=== PATIENT | female | born 1990 | race Caucasian/White ===

== ENCOUNTER 2019-12-21 20:12 | Inpatient (IN) ==
[2019-12-21] MEDS ORDERED: OXYTOCIN 30 UNITS/500 ML BAG IV PRN ×2 (20:57→21:07)
--- NOTE | 2019-12-21 21:03 | History & Physical Report ---
Date of Service December 21, 2019 Assessment & Plan (1) 38 weeks gestation of : category one fetus (2) Gestational hypertension: Initial pressures very high and likely contributed to by her anxiety. Once plan discussed pressure was lower. Her labs drawn earlier today were all wnl. she meets the criteria for ghtn and given she is greater than 37 weeks, recommendation is for delivery. Explained this situation to the patient and her who express understanding and agree to the plan for induction. No indication for BP meds or Mag at this point. However, if pressures remain elevated in severe range, will need to treat and start Mag. Will continue to monitor closely. History of Present Illness Chief Complaint: elevated blood pressures Primary Care Provider: Malena Woodruff DO Patient is a 29yowf with iup at 38 2/7 weeks who presented to the office today for her pnv. Had elevated blood pressures of 148/94 and 144/90. At her appt last week had a 144/90. Patient returns to labor and delivery for blood pressure reevaluation. The patient is VERY nervous about what will be happening. She denies bates/vision changes/n/v/ruq pain or increase in swelling. Notes she has been swollen for several weeks but not increased recently. The has been complicated by GBS positive urine. labs--A+/ab-/ri/rprnr/hepb-/hiv-/gbs positive urine/ neg cf/sma/ neg gc/ct/ nl 16 week gtt/ failed 28 week gtt and passed 2 hr. Allergies Allergy/AdvReac Type Severity Reaction Status Date / Time No Known Allergies Allergy Verified 12/21/19 15:42 Home Medications Home Medications Medication Instructions Recorded Confirmed Type prenat.vits,cyrus,trm-ttrk-zrzak 1 tab PO DAILY 05/19/19 12/21/19 History loratadine 1 cap PO DAILY 12/07/19 12/21/19 History Patient History Medical History (Updated 12/21/19 @ 21:08 by Elizabeth White MD, FACOG) Hx of varicella Seasonal allergies Yeast infection Family History (Updated 05/19/19 @ 14:14 by Joann Durbin) Mother Hypertension Father Hypertension Social History (Updated 05/19/19 @ 13:42 by Joann Durbin) marital status: marital status details: Navarro Loo (32) [phone] Current Living Situation: Spouse Current Living Situation Comment: lives with spouse, 2 dogs current occupational status: employed current occupation: [employer] Smoking Status: Never smoker Hx Alcohol Use: No Hx Substance Use: No OB History g1--present [employer] History no stds, no abnl paps Review of Systems All systems reviewed & are unremarkable except as noted in HPI & below Physical Exam Constitutional: WD/WN, vitals as above Cardiovascular: Extremities: + edema (+1); no calf tenderness Gastrointestinal (Abdomen): soft, nt, gravid, no ruq pain Neurologic: patellar DTR's 2+ bilat, sensation intact no clonus Psychiatric: A+Ox3, euthymic affect Genitourinary: cx--c/l/h in the office today toco--rare efm--145 with moderate variability, accels to 170s, no decels Results & Data ([facility]) Vital Signs (Past 12 Hours) Vital Signs Temp Pulse Resp BP 12/21/19 20:38 118 H 164/97 H 12/21/19 20:22 121 H 171/100 H 12/21/19 20:21 37.5 C 18 Code Status & VTE Plan VTE Prophylaxis Plan VTE Prophylaxis will be ordered: No Coding Level of Care Code None Diagnoses 38 weeks gestation of Z3A.38 Gestational hypertension O13.9
[2019-12-21] MEDS ORDERED: PENICILLIN G POTASSIUM 6 MU in DEXTROSE 5% 250 ML IV ONE (21:15)
[2019-12-21] MEDS ORDERED: miSOPROStoL 25 MCG TAB PV ONE (21:53)
--- NOTE | 2019-12-21 21:55 | Communication Note ---
Date of Service: December 21, 2019 cx--1/l/-2/soft/mid toco--rare efm--category one Attempted to place valenzuela bulb and was unsuccessful as could not pass into internal os. Bulb kept falling out when inflating. Plan to proceed with cytotec for cervical ripening.
[2019-12-22] MEDS ORDERED: miSOPROStoL 25 MCG TAB ONE (02:06)
[2019-12-22] MEDS ORDERED: miSOPROStoL 25 MCG TAB PV ONE (02:07)
--- NOTE | 2019-12-22 02:11 | Labor Progress Brief Note ---
Date of Service December 22, 2019 Subjective feeling crampy Assessment & Plan (1) Gestational hypertension: Pressures have improved. Did not need treatment at this point. cytotec number two placed. Fetus category one. Admission and Anticipated Discharge Date Admission Date: December 21, 2019 Physical Exam Constitutional: WD/WN, vitals as above Psychiatric: A+Ox3, euthymic affect Genitourinary: cx--1+/50/-2 toco--paola efm--130s with mod variability, accels to 160s, no decels Results & Data ([facility]) Vital Signs (Past 12 Hours) Vital Signs Temp Pulse Resp BP 12/22/19 01:55 89 141/87 H 12/22/19 01:25 81 147/93 H 12/22/19 00:55 86 142/85 H 12/22/19 00:25 93 H 140/79 12/22/19 00:00 37.3 C 18 12/21/19 23:53 94 H 143/83 H 12/21/19 23:38 101 H 149/86 H 12/21/19 23:23 98 H 140/87 12/21/19 23:08 90 149/87 H 12/21/19 22:53 91 H 149/93 H 12/21/19 22:40 103 H 142/88 H 12/21/19 22:24 96 H 147/90 H 12/21/19 22:08 110 H 143/86 H 12/21/19 21:53 105 H 165/91 H 12/21/19 21:37 112 H 168/95 H 12/21/19 21:23 110 H 177/95 H 12/21/19 21:06 115 H 138/92 12/21/19 20:38 118 H 164/97 H 12/21/19 20:22 121 H 171/100 H 12/21/19 20:21 37.5 C 18 Coding Level of Care Code None Diagnoses Gestational hypertension O13.9
[2019-12-22] MEDS ORDERED: OXYTOCIN 30 UNITS/500 ML BAG IV PRN (03:58)
[2019-12-22] MEDS ORDERED: CITRIC ACID/SODIUM CITRATE 15 ML UDC PO SCH (06:00)
[2019-12-22] MEDS ORDERED: CEFAZOLIN 3000MG 65 ML IV SCH (06:00)
--- NOTE | 2019-12-22 06:26 | Labor Progress Brief Note ---
Date of Service December 22, 2019 Subjective Some cramping, BPs stable. Assessment & Plan (1) Gestational hypertension: Pressures stable. No worsening symptoms. Will now start pitocin. The cervix still makes a curve and I don't feel retry with bulb will be successful. Fetus category one. Admission and Anticipated Discharge Date Admission Date: December 21, 2019 Physical Exam Constitutional: WD/WN, vitals as above Psychiatric: A+Ox3, euthymic affect Genitourinary: cx--loose / /-2 toco--paola efm--135 wtih mod variabiltiy, accels to 160s, no decels Results & Data ([facility]) Vital Signs (Past 12 Hours) Vital Signs Temp Pulse Resp BP 12/22/19 05:55 86 144/90 H 12/22/19 05:26 78 145/86 H 12/22/19 04:55 77 146/88 H 12/22/19 04:26 77 143/87 H 12/22/19 03:58 36.7 C 18 12/22/19 03:55 88 135/85 12/22/19 03:25 83 132/86 12/22/19 02:55 86 143/86 H 12/22/19 02:25 83 140/86 12/22/19 01:55 89 141/87 H 12/22/19 01:25 81 147/93 H 12/22/19 00:55 86 142/85 H 12/22/19 00:25 93 H 140/79 12/22/19 00:00 37.3 C 18 12/21/19 23:53 94 H 143/83 H 12/21/19 23:38 101 H 149/86 H 12/21/19 23:23 98 H 140/87 12/21/19 23:08 90 149/87 H 12/21/19 22:53 91 H 149/93 H 12/21/19 22:40 103 H 142/88 H 12/21/19 22:24 96 H 147/90 H 12/21/19 22:08 110 H 143/86 H 12/21/19 21:53 105 H 165/91 H 12/21/19 21:37 112 H 168/95 H 12/21/19 21:23 110 H 177/95 H 12/21/19 21:06 115 H 138/92 12/21/19 20:38 118 H 164/97 H 12/21/19 20:22 121 H 171/100 H 12/21/19 20:21 37.5 C 18 Coding Level of Care Code None Diagnoses Gestational hypertension O13.9
[2019-12-22] MEDS: LACTATED RINGER'S 1,000 ML IV PRN ×4 (06:47→18:02)
--- NOTE | 2019-12-22 10:57 | Labor Progress Brief Note ---
Date of Service December 22, 2019 Subjective pt feeling more discomfort with ctx but does not feel she needs pain management. she denies rom. denies bates or visual change. no ruq pain Assessment & Plan (1) Gestational hypertension: (2) 38 weeks gestation of : (3) Unfavorable cervix in term : rec valenzuela ripening and pt agrees, valenzuela placed. cont with pit. fhts categ 1. Admission and Anticipated Discharge Date Admission Date: December 21, 2019 Physical Exam Constitutional: WD/WN, vitals as above Neurologic: grossly normal Psychiatric: A+Ox3, euthymic affect Genitourinary: Manual OB Exam: + cervical dilation (1+), + cervical effacement 50% and + station -2 OB Exam Monitor Tracing: + external FHT monitor used (135 mod variabilty), + external uterine monitor used (q2-3 pit at 8), + category I and + normal FHT variability Procedure: rec retry valenzuela balloon. pt agrees. spec placed, ring on ant lip. valenzuela placed and balloon inflated with 40cc water. spec and ring removed. valenzuela taped to leg. pt santo well. Results & Data ([facility]) Vital Signs (Past 12 Hours) Vital Signs Temp Pulse Resp BP 12/22/19 10:26 90 149/84 H 12/22/19 09:56 85 139/87 12/22/19 09:26 90 138/96 12/22/19 08:56 100 H 134/89 12/22/19 08:25 93 H 145/92 H 12/22/19 07:55 100 H 139/93 12/22/19 07:25 97 H 141/85 H 12/22/19 07:10 98.6 F 18 12/22/19 06:55 93 H 157/94 H 12/22/19 06:25 91 H 157/95 H 12/22/19 05:55 86 144/90 H 12/22/19 05:26 78 145/86 H 12/22/19 04:55 77 146/88 H 12/22/19 04:26 77 143/87 H 12/22/19 03:58 98.1 F 18 12/22/19 03:55 88 135/85 12/22/19 03:25 83 132/86 12/22/19 02:55 86 143/86 H 12/22/19 02:25 83 140/86 12/22/19 01:55 89 141/87 H 12/22/19 01:25 81 147/93 H 12/22/19 00:55 86 142/85 H 12/22/19 00:25 93 H 140/79 12/22/19 00:00 99.1 F 18 12/21/19 23:53 94 H 143/83 H 12/21/19 23:38 101 H 149/86 H 12/21/19 23:23 98 H 140/87 12/21/19 23:08 90 149/87 H Coding Level of Care Code None Diagnoses Gestational hypertension O13.9 38 weeks gestation of Z3A.38 Unfavorable cervix in term O34.40 CPT Codes Misx Procedure Codes - 89937 Placement of cervical dilator: 07939 Placement of cervical dilator ([id number]) [employer] Miscellaneous Codes Misx Procedure Codes 69672 Placement of cervical dilator
[2019-12-22] MEDS ORDERED: ePHEDrine sulfate 50 MG/ML AMP ONE (11:00)
[2019-12-22] MEDS ORDERED: fentaNYL citrate 100 MCG/2 ML VIAL ONE ×2 (11:01→20:22)
[2019-12-22] MEDS ORDERED: BUPIVACAINE 0.25% 30 ML VIAL ONE (11:01)
[2019-12-22] MEDS ORDERED: fentaNYL 2MCG/ML ROPIV 1.25MG/ML 100 ML BAG EPI ONE (11:02)
[2019-12-22] MEDS: PENICILLIN G POTASSIUM 3 MU in DEXTROSE 5% 100 ML IV PRN ×2 (11:03→15:17)
--- NOTE | 2019-12-22 11:21 | Anesthesiology Consultation ---
Date of Service December 22, 2019 Assessment & Plan ASA ASA2 Proposed Anesthesia Anesthesia Type: Labor Epidural Risk / Benefits Reviewed With: PT / POA / Parent / Guardian, Accepts Plan and Informed Consent Obtained History Height/Weight Height: 5 ft 4 in Weight: 98.883 kg Allergies Allergy/AdvReac Type Severity Reaction Status Date / Time No Known Allergies Allergy Verified 12/21/19 15:42 Medications Home Medications Medication Instructions Recorded Confirmed Last Taken prenat.vits,cyrus,vqr-oybm-rpqkn 1 tab PO DAILY 05/19/19 12/21/19 12/21/19 08:00 loratadine 1 cap PO DAILY 12/22/19 12/22/19 12/21/19 08:00 Active Medications Generic Name Dose Route Start Last Admin Trade Name Freq PRN Reason Stop Dose Admin Lactated Ringer's 1,000 mls @ 125 mls/hr 12/21/19 20:57 12/22/19 11:47 Lr IV 12/23/19 20:56 125 mls/hr .Q8H PRN Administration L&D Protocol Protocol Penicillin G Potassium 3 mu/ 106 mls @ 100 mls/hr 12/21/19 20:57 12/22/19 11:03 Dextrose IV 12/31/19 20:56 100 mls/hr Q4H PRN Administration Give until delivery Oxytocin 30 units in 500 mls @ 8 mls/hr 12/21/19 21:07 12/22/19 11:15 Pitocin IV 12/23/19 21:06 0.48 units/hr .Q24H PRN 8 mls/hr Labor Induction/Augmentation Titration Protocol 0.48 UNITS/HR Ropivacaine 100 ml 12/22/19 11:22 12/22/19 11:45 Epidural (L&D) EPI 12/23/19 11:21 100 ml PRN PRN Administration Pain R/T Labor Protocol Past Medical History Medical History Hx of varicella Seasonal allergies Yeast infection Exercise / Class Metabolic Activity II 4-5 Yardwork/Stairs/Walk up hill Past Family History Family History Mother Hypertension Father Hypertension Past Anesthesia History No Hx of Anesthesia Complications and No Family Hx of Anesthesia Complications History of PONV No Hx of PONV and No Hx of Motion Sickness Social History Smoking Status: Never smoker Hx Alcohol Use: No Hx Substance Use: No Review of Systems denies fever/cough/ colds/ chest pain/ SOB/ ELLE Constitutional: no fever and no chills Respiratory: no cough and no dyspnea denies ELLE Cardiovascular: no chest pain and no dyspnea on exertion Physical Exam Vital Signs Last Vital Signs Temp 36.9 C 12/22/19 11:15 Pulse 88 12/22/19 11:49 Resp 20 12/22/19 11:15 BP 144/81 H 12/22/19 11:49 Pulse Ox 99 12/22/19 11:46 ENMT Mouth: no TMJ abnormality and no dentition abnormality Thyromental Distance: > or= 3.5 Finger Breadths Mallampati Class: II Neck neck extension not limited Respiratory normal respiratory effort; no respiratory distress Auscultation: lungs clear to auscultation bilaterally Cardiovascular Rate/Rhythm: regular rate and regular rhythm Neurologic moves all extremities Psychiatric Orientation: alert and oriented x 3
[2019-12-22] MEDS ORDERED: ePHEDrine sulfate 50 MG/ML AMP IV PRN ×2 (11:22→21:09)
[2019-12-22] MEDS ORDERED: fentaNYL 2MCG/ML ROPIV 1.25MG/ML 100 ML BAG EPI PRN (11:22)
[2019-12-22] MEDS ORDERED: DiphenhydrAMINE HCL 50 MG/ML VIAL IV PRN ×2 (11:22→21:09)
[2019-12-22] MEDS ORDERED: NALOXONE HCL 0.4 MG/1 ML VIAL/CARP IV PRN ×2 (11:22→21:09)
[2019-12-22] MEDS ORDERED: ONDANSETRON INJ 2 MG/ML 2 ML VIAL IV PRN ×2 (11:22→21:09)
[2019-12-22] MEDS ORDERED: NALOXONE HCL 1 MG in SODIUM CHLORIDE 0.9% 1000ML 1,000 ML IV PRN ×2 (11:22→21:09)
[2019-12-22] MEDS ORDERED: NALBUPHINE HCL INJ 10 MG/ML AMP IV PRN ×2 (11:22→21:09)
[2019-12-22] MEDS ORDERED: PROMETHAZINE HCL 25 MG in SODIUM CHLORIDE 0.9% 50 ML IV PRN ×2 (11:22→21:09)
--- NOTE | 2019-12-22 14:08 | Labor Progress Brief Note ---
Date of Service December 22, 2019 Subjective came into room and decels noted. pit was off per nurse, position change happening. O2 being applied. valenzuela balloon deflated for exam. Assessment & Plan (1) 38 weeks gestation of : (2) Gestational hypertension: discussed categ 2 tracing with pt and partner. valenzuela balloon ripening effective. will wait 30min for in utero resuscitation and then use iupc findings to guide restart of pitocin to cont induction. Admission and Anticipated Discharge Date Admission Date: December 21, 2019 Physical Exam Constitutional: WD/WN, vitals as above Psychiatric: A+Ox3, euthymic affect Genitourinary: Manual OB Exam: + cervical dilation 5 cm, + cervical effacement (75%), + station -2 and + amniotic fluid (FSE placed and arom clear) clear OB Exam Monitor Tracing: + external FHT monitor used (150 with deep variables), + external uterine monitor used (q3, iupc placed. ), + category II and + normal FHT variability Results & Data ([facility]) Vital Signs (Past 12 Hours) Vital Signs Temp Pulse Resp BP Pulse Ox 12/22/19 14:01 87 142/80 H 100 12/22/19 14:00 98.8 F 20 12/22/19 13:56 88 100 12/22/19 13:51 85 100 12/22/19 13:46 90 100 12/22/19 13:44 90 137/83 12/22/19 13:41 108 H 100 12/22/19 13:36 113 H 100 12/22/19 13:31 104 H 100 12/22/19 13:30 95 H 20 137/86 12/22/19 13:26 91 H 100 12/22/19 13:21 90 100 12/22/19 13:16 99 H 100 12/22/19 13:15 96 H 137/86 12/22/19 13:11 99 H 100 12/22/19 13:06 116 H 99 12/22/19 13:01 98 H 18 147/84 H 100 12/22/19 12:56 97 H 100 12/22/19 12:51 98 H 100 12/22/19 12:46 88 142/81 H 100 12/22/19 12:41 93 H 100 12/22/19 12:36 91 H 100 12/22/19 12:31 89 99 12/22/19 12:30 93 H 20 145/83 H 12/22/19 12:26 94 H 99 12/22/19 12:21 101 H 99 12/22/19 12:16 99 H 99 12/22/19 12:15 88 140/83 12/22/19 12:11 88 99 12/22/19 12:06 90 99 12/22/19 12:05 20 12/22/19 12:01 89 98 12/22/19 11:59 83 142/83 H 12/22/19 11:57 96 H 139/82 12/22/19 11:56 97 H 98 12/22/19 11:55 88 136/78 12/22/19 11:53 94 H 140/79 12/22/19 11:51 88 138/77 98 12/22/19 11:49 88 144/81 H 12/22/19 11:47 88 144/82 H 12/22/19 11:46 90 99 12/22/19 11:45 91 H 142/80 H 12/22/19 11:43 88 139/82 12/22/19 11:41 86 145/87 H 99 12/22/19 11:39 78 144/91 H 12/22/19 11:36 86 99 12/22/19 11:31 83 99 12/22/19 11:26 93 H 137/83 100 12/22/19 11:21 82 100 12/22/19 11:16 83 99 12/22/19 11:15 98.4 F 20 12/22/19 10:55 100 H 135/93 12/22/19 10:26 90 149/84 H 12/22/19 09:56 85 139/87 12/22/19 09:26 90 138/96 12/22/19 08:56 100 H 134/89 12/22/19 08:25 93 H 145/92 H 12/22/19 07:55 100 H 139/93 12/22/19 07:25 97 H 141/85 H 12/22/19 07:10 98.6 F 18 12/22/19 06:55 93 H 157/94 H 12/22/19 06:25 91 H 157/95 H 12/22/19 05:55 86 144/90 H 12/22/19 05:26 78 145/86 H 12/22/19 04:55 77 146/88 H 12/22/19 04:26 77 143/87 H 12/22/19 03:58 98.1 F 18 12/22/19 03:55 88 135/85 12/22/19 03:25 83 132/86 12/22/19 02:55 86 143/86 H 12/22/19 02:25 83 140/86 Coding Level of Care Code None Diagnoses 38 weeks gestation of Z3A.38 Gestational hypertension O13.9
[2019-12-22] MEDS ORDERED: LIDOCAINE/EPINEPHRINE 2% 1:200,000 20 ML SDV ONE (17:51)
--- NOTE | 2019-12-22 18:07 | Labor Progress Brief Note ---
Date of Service December 22, 2019 Subjective Reason For Note: Change In Status came to see pt with decel orestes in 80s. nurse already shut off pitocin and position change and o2 initiated. Assessment & Plan (1) 38 weeks gestation of : (2) Gestational hypertension: (3) bradycardia: will allow for in utero resuscitation. discussed with couple that not sure fetus wants to tolerate labor. can consider restart of pitocin if fetus continues to look better vs. proceed with c/s. allowing them to think about options. right now fhts are categ 1 with inadeq ctx. Admission and Anticipated Discharge Date Admission Date: December 21, 2019 Physical Exam Constitutional: WD/WN, vitals as above Psychiatric: A+Ox3, euthymic affect Genitourinary: Manual OB Exam: + cervical dilation 6 cm, + cervical effacement 90% and + station -1 OB Exam Monitor Tracing: + external FHT monitor used (140 baseline and variable decels to orestes 60-80 x 9min), + scalp electrode used (cannot trace well, 2nd fse placed. ), + external uterine monitor used (q3, but run of ctx noted and SQ terb given) and + category II on my arrival checked cx 6cm, pit already off, tried scalp stim, position change. not improving, seems some tachysystole thus sq terb ordered and given. was readying the OR for possible emergency c/s. as ctx dissapated, fhts improved. 150 mod variability, accels, mod variability Results & Data ([facility]) Vital Signs (Past 12 Hours) Vital Signs Temp Pulse Resp BP Pulse Ox 12/22/19 17:56 111 H 100 12/22/19 17:55 99.7 F H 20 12/22/19 17:51 118 H 100 12/22/19 17:46 92 H 128/77 100 12/22/19 17:41 89 98 12/22/19 17:36 90 97 12/22/19 17:31 94 H 144/94 H 98 12/22/19 17:30 20 12/22/19 17:26 103 H 98 12/22/19 17:21 101 H 98 12/22/19 17:16 103 H 98 12/22/19 17:15 94 H 140/86 12/22/19 17:11 97 H 98 12/22/19 17:06 98 H 98 12/22/19 17:01 95 H 97 12/22/19 17:00 107 H 20 138/86 12/22/19 16:56 106 H 98 12/22/19 16:51 101 H 98 12/22/19 16:46 94 H 139/81 98 12/22/19 16:41 104 H 98 12/22/19 16:36 92 H 98 12/22/19 16:31 101 H 128/79 97 12/22/19 16:26 102 H 99 12/22/19 16:21 91 H 97 12/22/19 16:16 92 H 99 12/22/19 16:14 95 H 147/81 H 12/22/19 16:11 93 H 98 12/22/19 16:06 99.5 F 102 H 16 99 12/22/19 16:01 96 H 98 12/22/19 15:59 93 H 146/81 H 12/22/19 15:56 94 H 99 12/22/19 15:51 100 H 99 12/22/19 15:46 101 H 99 12/22/19 15:45 93 H 151/84 H 12/22/19 15:41 84 98 12/22/19 15:36 97 H 98 12/22/19 15:31 91 H 98 12/22/19 15:30 18 12/22/19 15:29 93 H 147/84 H 12/22/19 15:26 80 98 12/22/19 15:21 91 H 99 12/22/19 15:16 93 H 100 12/22/19 15:15 92 H 151/83 H 12/22/19 15:11 87 99 12/22/19 15:06 98 H 99 12/22/19 15:01 90 100 12/22/19 15:00 91 H 145/85 H 12/22/19 14:56 97 H 100 12/22/19 14:51 92 H 100 12/22/19 14:46 93 H 100 12/22/19 14:45 94 H 147/81 H 12/22/19 14:41 96 H 100 12/22/19 14:36 95 H 100 12/22/19 14:31 90 100 12/22/19 14:30 93 H 20 149/78 H 12/22/19 14:26 87 100 12/22/19 14:21 93 H 100 06/30/20 14:16 89 100 12/22/19 14:15 85 147/77 H 12/22/19 14:11 87 100 12/22/19 14:06 90 100 12/22/19 14:01 87 142/80 H 100 12/22/19 14:00 98.8 F 20 12/22/19 13:56 88 100 12/22/19 13:51 85 100 12/22/19 13:46 90 100 12/22/19 13:44 90 137/83 12/22/19 13:41 108 H 100 12/22/19 13:36 113 H 100 12/22/19 13:31 104 H 100 12/22/19 13:30 95 H 20 137/86 12/22/19 13:26 91 H 100 12/22/19 13:21 90 100 12/22/19 13:16 99 H 100 12/22/19 13:15 96 H 137/86 12/22/19 13:11 99 H 100 12/22/19 13:06 116 H 99 12/22/19 13:01 98 H 18 147/84 H 100 12/22/19 12:56 97 H 100 12/22/19 12:51 98 H 100 12/22/19 12:46 88 142/81 H 100 12/22/19 12:41 93 H 100 12/22/19 12:36 91 H 100 12/22/19 12:31 89 99 12/22/19 12:30 93 H 20 145/83 H 12/22/19 12:26 94 H 99 12/22/19 12:21 101 H 99 12/22/19 12:16 99 H 99 12/22/19 12:15 88 140/83 12/22/19 12:11 88 99 12/22/19 12:06 90 99 12/22/19 12:05 20 12/22/19 12:01 89 98 12/22/19 11:59 83 142/83 H 12/22/19 11:57 96 H 139/82 12/22/19 11:56 97 H 98 12/22/19 11:55 88 136/78 12/22/19 11:53 94 H 140/79 12/22/19 11:51 88 138/77 98 12/22/19 11:49 88 144/81 H 0620 11:47 88 144/82 H 12/22/19 11:46 90 99 12/22/19 11:45 91 H 142/80 H 12/22/19 11:43 88 139/82 12/22/19 11:41 86 145/87 H 99 12/22/19 11:39 78 144/91 H 12/22/19 11:36 86 99 12/22/19 11:31 83 99 12/22/19 11:26 93 H 137/83 100 12/22/19 11:21 82 100 12/22/19 11:16 83 99 12/22/19 11:15 98.4 F 20 12/22/19 10:55 100 H 135/93 12/22/19 10:26 90 149/84 H 12/22/19 09:56 85 139/87 12/22/19 09:26 90 138/96 12/22/19 08:56 100 H 134/89 12/22/19 08:25 93 H 145/92 H 12/22/19 07:55 100 H 139/93 12/22/19 07:25 97 H 141/85 H 12/22/19 07:10 98.6 F 18 12/22/19 06:55 93 H 157/94 H 12/22/19 06:25 91 H 157/95 H Coding Level of Care Code None Diagnoses 38 weeks gestation of Z3A.38 Gestational hypertension O13.9 bradycardia
[2019-12-22] MEDS ORDERED: TERBUTALINE SULFATE 1 MG/ML VIAL SQ ONE (18:08)
--- NOTE | 2019-12-22 18:20 | Labor Progress Brief Note ---
Date of Service December 22, 2019 Subjective Reason For Note: Routine Evaluation went in to followup with pt about recent events. no pain Assessment & Plan (1) 38 weeks gestation of : (2) Gestational hypertension: reviewed recent events with pt. fetus has recovered categ 1. offered restart pitocin, she expresses concern that decels could happen again. explained that is a real possibilty and not sure her progress will be very fast. in addition was not using much pit (was at 2) and was at adeq mvu's. still dx if she elects c/s would be intolerance of labor as we have not given her sufficient time to see if progress would happen. she verbalized understanding. she is tearful but denies further questions. Admission and Anticipated Discharge Date Admission Date: December 21, 2019 Physical Exam Constitutional: WD/WN, vitals as above Psychiatric: A+Ox3, euthymic affect Genitourinary: OB Exam Monitor Tracing: + external FHT monitor used (140 mod variability, reactive, +spont accels), + intra-uterine pressure catheter used (q3, inadeq mvu's), + category I and + normal FHT variability Results & Data ([facility]) Vital Signs (Past 12 Hours) Vital Signs Temp Pulse Resp BP Pulse Ox 12/22/19 18:11 115 H 100 12/22/19 18:06 117 H 100 12/22/19 18:01 109 H 100 12/22/19 18:00 113 H 157/88 H 12/22/19 17:56 111 H 100 12/22/19 17:55 99.7 F H 20 12/22/19 17:51 118 H 100 12/22/19 17:46 92 H 128/77 100 12/22/19 17:41 89 98 12/22/19 17:36 90 97 12/22/19 17:31 94 H 144/94 H 98 12/22/19 17:30 20 12/22/19 17:26 103 H 98 12/22/19 17:21 101 H 98 12/22/19 17:16 103 H 98 12/22/19 17:15 94 H 140/86 12/22/19 17:11 97 H 98 12/22/19 17:06 98 H 98 12/22/19 17:01 95 H 97 12/22/19 17:00 107 H 20 138/86 12/22/19 16:56 106 H 98 12/22/19 16:51 101 H 98 12/22/19 16:46 94 H 139/81 98 12/22/19 16:41 104 H 98 12/22/19 16:36 92 H 98 12/22/19 16:31 101 H 128/79 97 12/22/19 16:26 102 H 99 12/22/19 16:21 91 H 97 12/22/19 16:16 92 H 99 12/22/19 16:14 95 H 147/81 H 12/22/19 16:11 93 H 98 12/22/19 16:06 99.5 F 102 H 16 99 12/22/19 16:01 96 H 98 12/22/19 15:59 93 H 146/81 H 12/22/19 15:56 94 H 99 12/22/19 15:51 100 H 99 12/22/19 15:46 101 H 99 12/22/19 15:45 93 H 151/84 H 12/22/19 15:41 84 98 12/22/19 15:36 97 H 98 12/22/19 15:31 91 H 98 12/22/19 15:30 18 12/22/19 15:29 93 H 147/84 H 12/22/19 15:26 80 98 12/22/19 15:21 91 H 99 12/22/19 15:16 93 H 100 12/22/19 15:15 92 H 151/83 H 12/22/19 15:11 87 99 12/22/19 15:06 98 H 99 12/22/19 15:01 90 100 12/22/19 15:00 91 H 145/85 H 12/22/19 14:56 97 H 100 12/22/19 14:51 92 H 100 12/22/19 14:46 93 H 100 12/22/19 14:45 94 H 147/81 H 12/22/19 14:41 96 H 100 12/22/19 14:36 95 H 100 12/22/19 14:31 90 100 12/22/19 14:30 93 H 20 149/78 H 12/22/19 14:26 87 100 12/22/19 14:21 93 H 100 12/22/19 14:16 89 100 12/22/19 14:15 85 147/77 H 06/30/20 14:11 87 100 12/22/19 14:06 90 100 12/22/19 14:01 87 142/80 H 100 12/22/19 14:00 98.8 F 20 12/22/19 13:56 88 100 12/22/19 13:51 85 100 12/22/19 13:46 90 100 12/22/19 13:44 90 137/83 12/22/19 13:41 108 H 100 12/22/19 13:36 113 H 100 12/22/19 13:31 104 H 100 12/22/19 13:30 95 H 20 137/86 12/22/19 13:26 91 H 100 12/22/19 13:21 90 100 12/22/19 13:16 99 H 100 12/22/19 13:15 96 H 137/86 12/22/19 13:11 99 H 100 12/22/19 13:06 116 H 99 12/22/19 13:01 98 H 18 147/84 H 100 12/22/19 12:56 97 H 100 12/22/19 12:51 98 H 100 12/22/19 12:46 88 142/81 H 100 12/22/19 12:41 93 H 100 12/22/19 12:36 91 H 100 12/22/19 12:31 89 99 12/22/19 12:30 93 H 20 145/83 H 12/22/19 12:26 94 H 99 12/22/19 12:21 101 H 99 12/22/19 12:16 99 H 99 12/22/19 12:15 88 140/83 12/22/19 12:11 88 99 12/22/19 12:06 90 99 12/22/19 12:05 20 12/22/19 12:01 89 98 12/22/19 11:59 83 142/83 H 12/22/19 11:57 96 H 139/82 12/22/19 11:56 97 H 98 12/22/19 11:55 88 136/78 12/22/19 11:53 94 H 140/79 12/22/19 11:51 88 138/77 98 12/22/19 11:49 88 144/81 H 12/22/19 11:47 88 144/82 H 12/22/19 11:46 90 99 12/22/19 11:45 91 H 142/80 H 12/22/19 11:43 88 139/82 12/22/19 11:41 86 145/87 H 99 12/22/19 11:39 78 144/91 H 12/22/19 11:36 86 99 12/22/19 11:31 83 99 12/22/19 11:26 93 H 137/83 100 12/22/19 11:21 82 100 12/22/19 11:16 83 99 12/22/19 11:15 98.4 F 20 12/22/19 10:55 100 H 135/93 12/22/19 10:26 90 149/84 H 12/22/19 09:56 85 139/87 12/22/19 09:26 90 138/96 12/22/19 08:56 100 H 134/89 12/22/19 08:25 93 H 145/92 H 12/22/19 07:55 100 H 139/93 12/22/19 07:25 97 H 141/85 H 12/22/19 07:10 98.6 F 18 12/22/19 06:55 93 H 157/94 H 12/22/19 06:25 91 H 157/95 H Coding Level of Care Code None Diagnoses 38 weeks gestation of Z3A.38 Gestational hypertension O13.9
--- NOTE | 2019-12-22 19:28 | Labor Progress Brief Note ---
Date of Service December 22, 2019 Subjective Reason For Note: Routine Evaluation pt comfortable, she has considered her options and wants to proceed with c/s Assessment & Plan (1) 38 weeks gestation of : (2) Gestational hypertension: (3) Abnormal heart rate or rhythm affecting management of mother: pt has had bradycardia episode resolved with terbutaline. not progressing fast. that event was 2nd time pitocin turned off, prior time was due to deep variables. the fetus has since recovered and categ 1 however the patient prefers not to retry pitocin and i think this reasonable. we will proceed with c/s due to intolerance of labor. OR and nursery aware. consent reviewed and signed. Admission and Anticipated Discharge Date Admission Date: December 21, 2019 Physical Exam Constitutional: WD/WN, vitals as above Genitourinary: OB Exam Monitor Tracing: + external FHT monitor used (150 mod variability, reactive), + intra-uterine pressure catheter used (q4 min, inadeq mvu's), + category I and + normal FHT variability Results & Data ([facility]) Vital Signs (Past 12 Hours) Vital Signs Temp Pulse Resp BP Pulse Ox 12/22/19 19:16 109 H 99 12/22/19 19:15 110 H 143/84 H 12/22/19 19:11 99.1 F 116 H 18 100 12/22/19 19:06 108 H 100 12/22/19 19:01 109 H 100 12/22/19 18:59 103 H 145/79 H 12/22/19 18:56 111 H 100 12/22/19 18:51 110 H 100 12/22/19 18:46 110 H 100 12/22/19 18:44 110 H 147/76 H 12/22/19 18:41 105 H 100 12/22/19 18:36 111 H 100 12/22/19 18:31 110 H 157/86 H 100 12/22/19 18:26 108 H 100 12/22/19 18:21 110 H 100 12/22/19 18:16 119 H 165/87 H 100 12/22/19 18:11 115 H 100 12/22/19 18:06 117 H 100 12/22/19 18:01 109 H 100 12/22/19 18:00 113 H 20 157/88 H 12/22/19 17:56 111 H 100 12/22/19 17:55 99.7 F H 20 12/22/19 17:51 118 H 100 12/22/19 17:46 92 H 128/77 100 12/22/19 17:41 89 98 12/22/19 17:36 90 97 12/22/19 17:31 94 H 144/94 H 98 12/22/19 17:30 20 12/22/19 17:26 103 H 98 12/22/19 17:21 101 H 98 12/22/19 17:16 103 H 98 12/22/19 17:15 94 H 140/86 12/22/19 17:11 97 H 98 12/22/19 17:06 98 H 98 12/22/19 17:01 95 H 97 12/22/19 17:00 107 H 20 138/86 12/22/19 16:56 106 H 98 12/22/19 16:51 101 H 98 12/22/19 16:46 94 H 139/81 98 12/22/19 16:41 104 H 98 12/22/19 16:36 92 H 98 12/22/19 16:31 101 H 128/79 97 12/22/19 16:26 102 H 99 12/22/19 16:21 91 H 97 12/22/19 16:16 92 H 99 12/22/19 16:14 95 H 147/81 H 12/22/19 16:11 93 H 98 12/22/19 16:06 99.5 F 102 H 16 99 12/22/19 16:01 96 H 98 12/22/19 15:59 93 H 146/81 H 12/22/19 15:56 94 H 99 12/22/19 15:51 100 H 99 12/22/19 15:46 101 H 99 12/22/19 15:45 93 H 151/84 H 12/22/19 15:41 84 98 12/22/19 15:36 97 H 98 12/22/19 15:31 91 H 98 12/22/19 15:30 18 12/22/19 15:29 93 H 147/84 H 12/22/19 15:26 80 98 12/22/19 15:21 91 H 99 12/22/19 15:16 93 H 100 12/22/19 15:15 92 H 151/83 H 12/22/19 15:11 87 99 06/30/20 15:06 98 H 99 12/22/19 15:01 90 100 12/22/19 15:00 91 H 145/85 H 12/22/19 14:56 97 H 100 12/22/19 14:51 92 H 100 12/22/19 14:46 93 H 100 12/22/19 14:45 94 H 147/81 H 12/22/19 14:41 96 H 100 12/22/19 14:36 95 H 100 12/22/19 14:31 90 100 12/22/19 14:30 93 H 20 149/78 H 12/22/19 14:26 87 100 12/22/19 14:21 93 H 100 12/22/19 14:16 89 100 12/22/19 14:15 85 147/77 H 12/22/19 14:11 87 100 12/22/19 14:06 90 100 12/22/19 14:01 87 142/80 H 100 12/22/19 14:00 98.8 F 20 12/22/19 13:56 88 100 12/22/19 13:51 85 100 12/22/19 13:46 90 100 12/22/19 13:44 90 137/83 12/22/19 13:41 108 H 100 12/22/19 13:36 113 H 100 12/22/19 13:31 104 H 100 12/22/19 13:30 95 H 20 137/86 12/22/19 13:26 91 H 100 12/22/19 13:21 90 100 12/22/19 13:16 99 H 100 12/22/19 13:15 96 H 137/86 12/22/19 13:11 99 H 100 12/22/19 13:06 116 H 99 12/22/19 13:01 98 H 18 147/84 H 100 12/22/19 12:56 97 H 100 12/22/19 12:51 98 H 100 12/22/19 12:46 88 142/81 H 100 12/22/19 12:41 93 H 100 12/22/19 12:36 91 H 100 12/22/19 12:31 89 99 12/22/19 12:30 93 H 20 145/83 H 12/22/19 12:26 94 H 99 12/22/19 12:21 101 H 99 12/22/19 12:16 99 H 99 12/22/19 12:15 88 140/83 12/22/19 12:11 88 99 12/22/19 12:06 90 99 12/22/19 12:05 20 12/22/19 12:01 89 98 12/22/19 11:59 83 142/83 H 12/22/19 11:57 96 H 139/82 12/22/19 11:56 97 H 98 12/22/19 11:55 88 136/78 12/22/19 11:53 94 H 140/79 12/22/19 11:51 88 138/77 98 12/22/19 11:49 88 144/81 H 12/22/19 11:47 88 144/82 H 12/22/19 11:46 90 99 12/22/19 11:45 91 H 142/80 H 12/22/19 11:43 88 139/82 12/22/19 11:41 86 145/87 H 99 12/22/19 11:39 78 144/91 H 12/22/19 11:36 86 99 12/22/19 11:31 83 99 12/22/19 11:26 93 H 137/83 100 12/22/19 11:21 82 100 12/22/19 11:16 83 99 12/22/19 11:15 98.4 F 20 12/22/19 10:55 100 H 135/93 12/22/19 10:26 90 149/84 H 12/22/19 09:56 85 139/87 12/22/19 09:26 90 138/96 12/22/19 08:56 100 H 134/89 12/22/19 08:25 93 H 145/92 H 12/22/19 07:55 100 H 139/93 12/22/19 07:25 97 H 141/85 H Coding Level of Care Code None Diagnoses 38 weeks gestation of Z3A.38 Gestational hypertension O13.9 Abnormal heart rate or rhythm affecting management of mother O36.8390
[2019-12-22] MEDS ORDERED: MoRPHine SULFATE PF 1 MG/ML 10 ML AMP/VIAL ONE (19:30)
[2019-12-22] MEDS ORDERED: LACTATED RINGER'S 1,000 ML IV SCH (19:30)
[2019-12-22] MEDS ORDERED: OXYTOCIN 10 UNITS/ML VIAL ONE (19:31)
[2019-12-22] MEDS ORDERED: CITRIC ACID/SODIUM CITRATE 15 ML UDC ONE (19:31)
[2019-12-22] MEDS ORDERED: PHENYLEPHRINE 100MCG/ML 5ML SYR ONE (20:30)
--- NOTE | 2019-12-22 21:03 | Post Operative Brief Note ---
PG Immediate Post Op with CF Date of Surgery December 22, 2019 Pre & Post Diagnosis Operation Date: 12/22/19 20:05 Pre-Op Diagnosis: 1. 38 + wk iup 2. Gestational Hypertension 3. Induction of labor 4. intolerance of labor Post-Op Diagnosis: Same I identified the patient and participated in the time-out.: Yes Procedure Operation Date: 12/22/19 20:05 Actual Procedures p Primary Low Transverse Section Surgeon Bria Mcintosh MD, FACOG Counselor/Art Therapist RN Estimated Blood Loss 500 Findings Consistent with Post-Op Diagnosis (viable female apgars 9, 10. normal uterus tubes and ovaries bilaterally. ) Fluids 800 Specimens Specimen Description: A. Placenta - hold B. Cord blood Drains Valenzuela Catheter (valenzuela catheter placed prior to OR, draining concentrated urine, to be monitored by anesthesia through out procedure ) Anesthesia Type Labor Epidural Complications none Disposition Accompanied Patient To Recovery: No Disposition: L&D
[2019-12-22] MEDS ORDERED: MoRPHine SULFATE PF 1 MG/ML 10 ML AMP/VIAL EPI ONE (21:09)
[2019-12-22] MEDS ORDERED: NALOXONE HCL 0.08 MG in SYRINGE 1.8 ML IV PRN (21:09)
[2019-12-22] MEDS ORDERED: MoRPHine SULFATE 2 MG/ML CARP IV PRN (21:09)
[2019-12-22] MEDS ORDERED: LACTATED RINGER'S 500 ML IV PRN (21:09)
[2019-12-22] MEDS ORDERED: MAGNESIUM HYDROXIDE SUSP 30 ML UDC PO PRN (21:10)
[2019-12-22] MEDS ORDERED: BENZOCAINE 20% AER SPR 82.5 GM CAN EXT PRN (21:10)
[2019-12-22] MEDS ORDERED: DIPHTHERIA/TETANUS/PERTUSSIS 0.5 ML SYR/VIAL IM ONE (21:10)
[2019-12-22] MEDS ORDERED: SENNA 8.6 MG TAB PO PRN (21:10)
[2019-12-22] MEDS ORDERED: SUPERCREAM 0.870% 15 GM JAR EXT PRN (21:10)
[2019-12-22] MEDS ORDERED: HYDROCORTISONE ACETATE 25 MG SUPP PR PRN (21:10)
--- NOTE | 2019-12-22 21:14 | Operative Report ---
PG Post Operative Report Pre & Post Diagnosis Operation Date: 12/22/19 20:05 Pre-Op Diagnosis: 1. 38 + week iup 2. Gestational hypertension 3. Induction of labor 4. intolerance of labor Post-Op Diagnosis: Same I identified the patient and participated in the time-out.: Yes Procedure Operation Date: 12/22/19 20:05 Actual Procedures Primary Low Transverse Section Surgeon Bria Mcintosh MD, FACOG Dimension Mill Worker RN Estimated Blood Loss 500 Findings Consistent with Post-Op Diagnosis (viable female, apgars 9,10, normal uterus tubes and ovaries bilaterally) Fluids 800 Specimens cord blood Drains valenzuela Anesthesia Type Labor Epidural Complications none Disposition Accompanied Patient To Recovery: No Disposition: L&D Indications 29yo at 38+wks anamaria presented to L&D last pm with diagnosis of gestational hypertension. She was advised of indication for induction. Her cervix was unfavorable. The provider was unable to place valenzuela ripening balloon due to closed cervix and so cytotec was given and then pitocin begun. This am, valenzuela ripening balloon was placed as cervix was 1.5cm. Her labor pain worsened and she requested and received an epidural. Around 1pm today deep variable decels were noted and pitocin was discontinued and at that time valenzuela balloon was noted in vagina and cervix was 5cm. AROM for clear fluid and after fetus returned to categ 1, pitocin was begun. An IUPC had been placed to guide use of pitocin. Then again with pitocin at 2, 8 minute bradycardia noted with cervix at 6cm and terbutaline required to relieve what seemed like tachysystole during this event. Naturally the pitocin had been stopped. Patient counseled about options, spontaneous contractions were inadequate but fetus did not seem to like the labor contractions. Fetus returned to categ 1 but patient declined retrial of pitocin induction and instead desired to proceed with section. Description of Procedure The patient was taken to the operating room and identified. After adequate anesthesia was obtained, she was placed in the supine position with a leftward tilt on the operating table and prepped and draped in the usual sterile fashion. A valenzuela catheter had already been placed. The knife was used to create a Pfannensteil skin incision that was carried down to the underlying layer of fascia. The fascia was nicked in the midline and this opening was extended laterally using Garcia scissors. Merary clamps were placed on the superior and inferior aspects of the fascial incision tenting it upward and the underlying rectus muscles were dissected off the overlying fascia both sharply and bluntly using Garcia scissors. The rectus muscles were bluntly in the midline. The peritoneal cavity was bluntly entered into. This opening was stretched. The bladder blade was placed. The vesicouterine peritoneum was elevated and opened up into and the bladder flap was created digitally and bladder blade was replaced. The knife was used to create a hysterotomy and this opening was stretched. The operators hand was placed through the hysterotomy and the bladder blade was removed. The head was elevated and flexed and with fundal pressure the head was delivered. The shoulders and body were rapidly delivered. The cord was clamped and cut and the infant's mouth and nares were bulb suction. The was handed off to the awaiting pediatricians. Cord blood was obtained. The placenta was manually expressed. The uterus was exteriorized and cleared of all clots and debris. Dilute IV Pitocin was begun. The uterine tone was improving. The hysterotomy was closed in a running interlocking fashion using 0 Vicryl followed by a second imbricating layer of 0 Vicryl. The hysterotomy was not hemostatic in midline and therefore interrupted figure of eight sutures of 2-0 vicryl were placed for excellent hemostasis . The pelvis was irrigated. The uterus was returned to the abdomen. The gutters were cleared of all clots and debris. The hysterotomy was reinspected and noted to be hemostatic. The fascia was then closed in running fashion using 0 Vicryl. The subcutaneous fat was copiously irrigated and reapproximated using 2-0 chromic. The skin was closed in a subcuticular fashion using 4-0 Vicryl. At this point the procedure was terminated. The patient was transferred to the recovery room in stable condition. All sponge, lap and needle counts are correct x2. I attest to the content of the Intraoperative Record and any orders documented therein. Any exceptions are noted below. OB Procedure charges OB Charges 85273 C/S
[2019-12-22] MEDS ORDERED: NO NARCOTICS OR SEDATIVES SCH (21:15)
[2019-12-22] MEDS ORDERED: SODIUM CHLORIDE 0.9% 1000ML 1,000 ML IV SCH (21:15)
[2019-12-22] MEDS ORDERED: MEPERIDINE HCL 25 MG/ML CARP/VIAL IV ONE (21:16)
[2019-12-22] MEDS ORDERED: MEPERIDINE HCL 50 MG/ML CARP ONE (21:28)
[2019-12-22] MEDS ORDERED: MEPERIDINE HCL 25 MG/ML CARP/VIAL ONE (21:29)
--- NOTE | 2019-12-22 21:30 | Anesthesiology Progress Note ---
Date of Service December 22, 2019 Anesthesia Post Procedure Vital Signs Vital Signs: Temp Pulse Resp BP Pulse Ox 12/22/19 21:24 103 H 98 12/22/19 21:20 97 H 93 12/22/19 21:19 102 H 97 12/22/19 21:16 100 H 164/72 H 12/22/19 21:14 96 H 98 12/22/19 21:13 99 H 183/70 H 12/22/19 20:01 107 H 18 99 12/22/19 20:00 103 H 148/79 H 12/22/19 19:56 105 H 99 12/22/19 19:51 101 H 99 12/22/19 19:46 105 H 99 12/22/19 19:45 106 H 137/83 12/22/19 19:41 105 H 100 12/22/19 19:36 109 H 99 12/22/19 19:31 109 H 99 12/22/19 19:30 18 12/22/19 19:29 108 H 140/86 12/22/19 19:26 108 H 100 12/22/19 19:21 108 H 99 12/22/19 19:16 109 H 99 12/22/19 19:15 110 H 18 143/84 H 12/22/19 19:11 37.3 C 116 H 18 100 12/22/19 19:06 108 H 100 12/22/19 19:02 37.3 C 12/22/19 19:01 109 H 100 12/22/19 18:59 103 H 145/79 H 12/22/19 18:56 111 H 100 12/22/19 18:51 110 H 100 12/22/19 18:46 110 H 100 12/22/19 18:44 110 H 147/76 H 12/22/19 18:41 105 H 100 12/22/19 18:36 111 H 100 12/22/19 18:31 110 H 157/86 H 100 12/22/19 18:26 108 H 100 12/22/19 18:21 110 H 100 12/22/19 18:16 119 H 165/87 H 100 12/22/19 18:11 115 H 100 12/22/19 18:06 117 H 100 12/22/19 18:01 109 H 100 12/22/19 18:00 113 H 20 157/88 H 12/22/19 17:56 111 H 100 12/22/19 17:55 37.6 C H 20 12/22/19 17:51 118 H 100 12/22/19 17:46 92 H 128/77 100 12/22/19 17:41 89 98 12/22/19 17:36 90 97 12/22/19 17:31 94 H 144/94 H 98 12/22/19 17:30 20 12/22/19 17:26 103 H 98 12/22/19 17:21 101 H 98 12/22/19 17:16 103 H 98 12/22/19 17:15 94 H 140/86 12/22/19 17:11 97 H 98 12/22/19 17:06 98 H 98 12/22/19 17:01 95 H 97 12/22/19 17:00 107 H 20 138/86 12/22/19 16:56 106 H 98 12/22/19 16:51 101 H 98 12/22/19 16:46 94 H 139/81 98 12/22/19 16:41 104 H 98 12/22/19 16:36 92 H 98 12/22/19 16:31 101 H 128/79 97 12/22/19 16:26 102 H 99 12/22/19 16:21 91 H 97 12/22/19 16:16 92 H 99 12/22/19 16:14 95 H 147/81 H 12/22/19 16:11 93 H 98 12/22/19 16:06 37.5 C 102 H 16 99 12/22/19 16:01 96 H 98 12/22/19 15:59 93 H 146/81 H 12/22/19 15:56 94 H 99 12/22/19 15:51 100 H 99 12/22/19 15:46 101 H 99 12/22/19 15:45 93 H 151/84 H 12/22/19 15:41 84 98 12/22/19 15:36 97 H 98 12/22/19 15:31 91 H 98 12/22/19 15:30 18 12/22/19 15:29 93 H 147/84 H 12/22/19 15:26 80 98 12/22/19 15:21 91 H 99 12/22/19 15:16 93 H 100 12/22/19 15:15 92 H 151/83 H 06/30/20 15:11 87 99 12/22/19 15:06 98 H 99 12/22/19 15:01 90 100 12/22/19 15:00 91 H 145/85 H 12/22/19 14:56 97 H 100 12/22/19 14:51 92 H 100 12/22/19 14:46 93 H 100 12/22/19 14:45 94 H 147/81 H 12/22/19 14:41 96 H 100 12/22/19 14:36 95 H 100 12/22/19 14:31 90 100 12/22/19 14:30 93 H 20 149/78 H 12/22/19 14:26 87 100 12/22/19 14:21 93 H 100 12/22/19 14:16 89 100 12/22/19 14:15 85 147/77 H 12/22/19 14:11 87 100 12/22/19 14:06 90 100 12/22/19 14:01 87 142/80 H 100 12/22/19 14:00 37.1 C 20 12/22/19 13:56 88 100 12/22/19 13:51 85 100 12/22/19 13:46 90 100 12/22/19 13:44 90 137/83 12/22/19 13:41 108 H 100 12/22/19 13:36 113 H 100 12/22/19 13:31 104 H 100 12/22/19 13:30 95 H 20 137/86 12/22/19 13:26 91 H 100 12/22/19 13:21 90 100 12/22/19 13:16 99 H 100 12/22/19 13:15 96 H 137/86 12/22/19 13:11 99 H 100 12/22/19 13:06 116 H 99 12/22/19 13:01 98 H 18 147/84 H 100 12/22/19 12:56 97 H 100 12/22/19 12:51 98 H 100 12/22/19 12:46 88 142/81 H 100 12/22/19 12:41 93 H 100 12/22/19 12:36 91 H 100 12/22/19 12:31 89 99 12/22/19 12:30 93 H 20 145/83 H 12/22/19 12:26 94 H 99 12/22/19 12:21 101 H 99 12/22/19 12:16 99 H 99 12/22/19 12:15 88 140/83 12/22/19 12:11 88 99 12/22/19 12:06 90 99 12/22/19 12:05 20 12/22/19 12:01 89 98 12/22/19 11:59 83 142/83 H 12/22/19 11:57 96 H 139/82 12/22/19 11:56 97 H 98 12/22/19 11:55 88 136/78 12/22/19 11:53 94 H 140/79 12/22/19 11:51 88 138/77 98 12/22/19 11:49 88 144/81 H 12/22/19 11:47 88 144/82 H 12/22/19 11:46 90 99 12/22/19 11:45 91 H 142/80 H 12/22/19 11:43 88 139/82 12/22/19 11:41 86 145/87 H 99 12/22/19 11:39 78 144/91 H 12/22/19 11:36 86 99 12/22/19 11:31 83 99 12/22/19 11:26 93 H 137/83 100 12/22/19 11:21 82 100 12/22/19 11:16 83 99 12/22/19 11:15 36.9 C 20 12/22/19 10:55 100 H 135/93 12/22/19 10:26 90 149/84 H 12/22/19 09:56 85 139/87 12/22/19 09:26 90 138/96 12/22/19 08:56 100 H 134/89 12/22/19 08:25 93 H 145/92 H 12/22/19 07:55 100 H 139/93 12/22/19 07:25 97 H 141/85 H 12/22/19 07:10 37 C 18 12/22/19 06:55 93 H 157/94 H 12/22/19 06:25 91 H 157/95 H 12/22/19 05:55 86 144/90 H 12/22/19 05:26 78 145/86 H 12/22/19 04:55 77 146/88 H 12/22/19 04:26 77 143/87 H 12/22/19 03:58 36.7 C 18 12/22/19 03:55 88 135/85 12/22/19 03:25 83 132/86 12/22/19 02:55 86 143/86 H 12/22/19 02:25 83 140/86 12/22/19 01:55 89 141/87 H 12/22/19 01:25 81 147/93 H 12/22/19 00:55 86 142/85 H 12/22/19 00:25 93 H 140/79 12/22/19 00:00 37.3 C 18 12/21/19 23:53 94 H 143/83 H 12/21/19 23:38 101 H 149/86 H 12/21/19 23:23 98 H 140/87 12/21/19 23:08 90 149/87 H 12/21/19 22:53 91 H 149/93 H 12/21/19 22:40 103 H 142/88 H 12/21/19 22:24 96 H 147/90 H 12/21/19 22:08 110 H 143/86 H 12/21/19 21:53 105 H 165/91 H 12/21/19 21:37 112 H 168/95 H Pain Intensity Bilateral Abdomen: Pain Intensity: 8 Transfer of Care Handoff Completed per policy Notes Mental Status: alert / awake / arousable and participated in evaluation Patient Amnestic to Procedure: Yes Nausea / Vomiting: adequately controlled Pain: adequately controlled Airway Patency, RR, SpO2: stable & adequate BP & HR: stable & adequate Hydration State: stable & adequate Anesthetic Complications: no major complications apparent and Pt Satisfied with anesthetic care
[2019-12-22] MEDS: OXYTOCIN 20 UNITS in LACTATED RINGER'S 1,000 ML IV SCH (21:43)
[2019-12-22] MEDS: KETOROLAC 30 MG/ML VIAL IV PRN (23:17)
[2019-12-23] MEDS: OXYTOCIN 20 UNITS in LACTATED RINGER'S 1,000 ML IV SCH (05:02)
[2019-12-23 05:59] LABS: Basophils # (auto) 0.01 K/uL (0-0.2); Basophils % (auto) 0.1 %; Eosinophils # (auto) 0.01 K/uL (0-0.5); Eosinophils % (auto) 0.1 %; Hemoglobin 11.3 g/dL (12.0-16.0); Immature Granulocytes # (auto) 0.04 K/uL (0.00-0.02); Immature Granulocytes % (auto) 0.3 %; Lymphocytes # (auto) 1.91 K/uL (1.2-3.4); Mean Corpuscular Hemoglobin 29.2 pg (25-34); Mean Corpuscular Hgb Conc 34.2 g/dL (32-36); Mean Corpuscular Volume 85.3 fL (80-100); Mean Platelet Volume 10.8 fL (7.4-10.4); Monocytes # (auto) 0.82 K/uL (0.11-0.59); Monocytes % (auto) 5.6 %; Neutrophils # (auto) 11.93 K/uL (1.4-6.5); Neutrophils % (auto) 80.9 %; Platelet Count 171 K/uL (130-400); RDW Coefficient of Variation 13.4 % (11.5-14.5); RDW Standard Deviation 41.3 fL (36.4-46.3); Red Blood Count 3.87 M/uL (4.2-5.4); White Blood Count 14.72 K/uL (4.8-10.8)
--- NOTE | 2019-12-23 07:37 | Obstetrical Progress Note ---
Date of Service December 23, 2019 Assessment & Plan (1) S/P primary low transverse : (2) Gestational hypertension: stable, routine pp care. plan to adv diet and ambulate and have voiding trial later today. , rh pos, ri. hgb noted. Day #:: 1 Subjective Voiding: valenzuela catheter in place Passing Gas:: Yes Diet Tolerance:: clear liquids Lochia:: Small Feeding Type:: breast feeding denies pain issues. has been still in bed and valenzuela in place. feels good about her decision to proceed with c/s. breast feeding. Physical Exam Constitutional WD/WN, vitals as above Respiratory normal respiratory effort, lungs clear to auscultation Cardiovascular Rate/Rhythm: regular rate and regular rhythm Gastrointestinal (Abdomen) Inspection/Auscultation: normal bowel sounds and + abdominal surgical incision (dressing c/d/i) Percussion/Palpation: abdomen soft; abdomen nontender ff 1 down nt. Results & Data ([facility]) Vital Signs (Past 12 Hours) Vital Signs Temp Pulse Pulse Resp BP BP Pulse Ox 12/23/19 06:15 15 99 12/23/19 05:15 16 98 12/23/19 04:20 98.2 F 85 17 135/85 98 12/23/19 04:15 16 96 12/23/19 03:15 16 97 12/23/19 02:15 16 97 12/23/19 01:15 15 97 12/23/19 00:15 97.9 F 84 16 148/78 H 98 12/22/19 23:20 98.2 F 88 18 146/85 H 12/22/19 23:19 91 H 100 12/22/19 23:14 100 H 100 12/22/19 23:09 93 H 100 12/22/19 23:04 102 H 100 12/22/19 22:59 94 H 100 12/22/19 22:54 84 100 12/22/19 22:52 89 145/86 H 12/22/19 22:50 18 12/22/19 22:49 96 H 100 12/22/19 22:44 94 H 100 12/22/19 22:39 107 H 100 12/22/19 22:34 112 H 100 12/22/19 22:29 104 H 100 12/22/19 22:24 93 H 100 12/22/19 22:23 97 H 154/74 H 12/22/19 22:20 98.6 F 18 12/22/19 22:19 113 H 99 12/22/19 22:16 101 H 165/75 H 12/22/19 22:14 111 H 99 12/22/19 22:10 18 12/22/19 22:09 115 H 100 12/22/19 22:05 105 H 166/123 H 12/22/19 22:04 117 H 100 12/22/19 22:00 115 H 100 12/22/19 21:59 115 H 100 12/22/19 21:54 110 H 100 12/22/19 21:50 18 12/22/19 21:49 113 H 100 12/22/19 21:46 109 H 144/67 H 12/22/19 21:44 110 H 99 12/22/19 21:40 18 12/22/19 21:39 111 H 100 12/22/19 21:37 118 H 133/89 12/22/19 21:34 112 H 99 12/22/19 21:30 18 12/22/19 21:29 106 H 98 12/22/19 21:24 103 H 98 12/22/19 21:20 98.2 F 97 H 18 93 12/22/19 21:19 102 H 97 12/22/19 21:16 100 H 164/72 H 12/22/19 21:14 96 H 98 12/22/19 21:13 99 H 183/70 H 12/22/19 20:01 107 H 18 99 12/22/19 20:00 103 H 148/79 H 12/22/19 19:56 105 H 99 12/22/19 19:51 101 H 99 12/22/19 19:46 105 H 99 12/22/19 19:45 106 H 137/83 12/22/19 19:41 105 H 100 12/22/19 19:36 109 H 99
[2019-12-23] MEDS: DOCUSATE SODIUM 100 MG CAP PO SCH ×2 (08:45→20:49)
[2019-12-23] MEDS: SIMETHICONE 80 MG CHEW PO SCH ×3 (08:45→16:35)
[2019-12-23] MEDS: FERROUS SULFATE 325 MG TAB PO SCH (08:45)
[2019-12-23] MEDS: KETOROLAC 30 MG/ML VIAL IV PRN (10:54)
[2019-12-23] MEDS ORDERED: PROMETHAZINE HCL 25 MG in SODIUM CHLORIDE 0.9% 50 ML IV PRN (15:09)
[2019-12-23] MEDS ORDERED: ONDANSETRON INJ 2 MG/ML 2 ML VIAL IV PRN (15:09)
[2019-12-23] MEDS ORDERED: KETOROLAC 30 MG/ML VIAL IV PRN (15:09)
[2019-12-23] MEDS ORDERED: DC INTRASPINAL MORPHINE SCH (15:09)
[2019-12-23] MEDS ORDERED: DiphenhydrAMINE HCL 50 MG/ML VIAL IV PRN (15:09)
[2019-12-23] MEDS: OXYCODONE/ACETAMINOPHEN 5mg/325mg TAB PO PRN ×2 (15:41→20:52)
[2019-12-23] MEDS: IBUPROFEN 600 MG TAB PO PRN ×2 (15:42→20:52)
[2019-12-24] MEDS: SIMETHICONE 80 MG CHEW PO SCH ×5 (01:29→20:39)
[2019-12-24 07:01] LABS: Hematocrit (blood only) 32.7 % (37-47); Hemoglobin 10.8 g/dL (12.0-16.0)
--- NOTE | 2019-12-24 07:18 | Obstetrical Progress Note ---
Date of Service December 24, 2019 Assessment & Plan (1) S/P primary low transverse : - dressing removed - BP stable - doing well - routine care Subjective Ambulation: ambulating normally Feeding Type:: breast feeding Physical Exam Constitutional WD/WN, vitals as above Respiratory normal respiratory effort, lungs clear to auscultation Cardiovascular RRR, no murmur, no edema Gastrointestinal (Abdomen) Incision intact, appropriate post-op tenderness Musculoskeletal (-) deep calf tenderness Results & Data ([facility]) Vital Signs (Past 12 Hours) Vital Signs Temp Pulse Resp BP Pulse Ox 12/23/19 23:05 97.5 F L 88 18 134/84 98 12/23/19 19:45 98.6 F 88 18 133/88 98
[2019-12-24] MEDS: LORATADINE 10 MG TAB PO SCH (07:45)
[2019-12-24] MEDS: OXYCODONE/ACETAMINOPHEN 5mg/325mg TAB PO PRN ×3 (07:45→23:07)
[2019-12-24] MEDS: FERROUS SULFATE 325 MG TAB PO SCH (07:45)
[2019-12-24] MEDS: DOCUSATE SODIUM 100 MG CAP PO SCH ×2 (07:45→20:39)
[2019-12-24] MEDS: IBUPROFEN 600 MG TAB PO PRN ×3 (07:45→23:07)
--- NOTE | 2019-12-25 06:21 | Obstetrical Progress Note ---
Date of Service December 25, 2019 Assessment & Plan (1) : POD#3 doing well. Desires discharge. Has had some labile blood pressures, she will come to office for BP recheck in 1 week. No s/s preeclampsia. (2) S/P primary low transverse : Subjective Ambulation: ambulating normally Voiding: no voiding problems Diet Tolerance:: regular diet Lochia:: Moderate Feeding Type:: breast feeding POD#3 doing well. Review of Systems All systems reviewed & are unremarkable except as noted in HPI & below Physical Exam Incision CDI Constitutional WD/WN, vitals as above no acute distress Respiratory normal respiratory effort Cardiovascular Rate/Rhythm: regular rate and regular rhythm Gastrointestinal (Abdomen) Inspection/Auscultation: abdomen normal to inspection; abdomen not distended Percussion/Palpation: abdomen soft Genitourinary OB Exam Abdomen: + fundal height Fundus: + firm; not tender Results & Data ([facility]) Vital Signs (Past 12 Hours) Vital Signs Temp Pulse Resp BP 12/25/19 03:30 36.8 C 85 18 149/91 H 12/24/19 23:10 36.8 C 80 18 158/91 H 12/24/19 20:35 36.6 C 87 18 159/89 H
[2019-12-25] MEDS: IBUPROFEN 600 MG TAB PO PRN (08:34)
[2019-12-25] MEDS: FERROUS SULFATE 325 MG TAB PO SCH (08:35)
[2019-12-25] MEDS: OXYCODONE/ACETAMINOPHEN 5mg/325mg TAB PO PRN (08:35)
[2019-12-25] MEDS: DOCUSATE SODIUM 100 MG CAP PO SCH (08:35)
[2019-12-25] MEDS: LORATADINE 10 MG TAB PO SCH (08:35)
[2019-12-25] MEDS: SIMETHICONE 80 MG CHEW PO SCH (08:38)
--- NOTE | 2019-12-30 12:01 | Discharge Summary ---
Date of Service Date of admission: November Date of discharge: December 25, 2019 Admission HPI Per Admitting Provider Admission diagnoses: 1. 38 week iup 2. Gestational hypertension 3. Unfavorable cervix at term Discharge diagnoses: same, s/p section for intolerance of labor Admission history: Patient is a 29yowf with iup at 38 2/7 weeks who presented to the office today for her pnv. Had elevated blood pressures of 148/94 and 144/90. At her appt last week had a 144/90. Patient returns to labor and delivery for blood pressure reevaluation. The patient is VERY nervous about what will be happening. She denies bates/vision changes/n/v/ruq pain or increase in swelling. Notes she has been swollen for several weeks but not increased recently. The has been complicated by GBS positive urine. labs--A+/ab-/ri/rprnr/hepb-/hiv-/gbs positive urine/ neg cf/sma/ neg gc/ct/ nl 16 week gtt/ failed 28 week gtt and passed 2 hr. In essence, her bp was elevated and consistent with gestational hypertension diagnosis greater than 37wk EGA. Induction recommended and due to unfavorable cervix, ripening recommended. She had normal lab studies. Valenzuela could not be placed due to closed cervix, therefore cytotec given and ultimately pitocin begun. On hospital day #2, cervix was now 1.5cm and so valenzuela ripening balloon placed and pitocin continued. Discharge Data Consultations 12/21/19 20:57 Consult Anesthesiology Stat Procedures Performed Operation Date: 12/22/19 20:05 Actual Procedures Primary Low Transverse Section Hospital Course (1) 38 weeks gestation of : (2) Gestational hypertension: (3) bradycardia: (4) Abnormal heart rate or rhythm affecting management of mother: (5) S/P primary low transverse : Please see above section for admission history. At various times during induction with pitocin, decels noted. At one point FSE placed and IUPC placed to help guide labor management. Pitocin was stopped and restarted due to decels at different points in induction. When patient was 6cm, bradycardia noted and tachysystole at pitocin rate of 2 noted. Terbutaline given. Fetus recovered to category 1 but patient was ready to proceed with section for intolerance of labor. The procedure was performed without incident. The estimated blood loss was 500cc. The patient's postoperative recovery was unremarkable with postop hematocrit at 32.7%. She was ready for d/c home on her postoperative day #3. Instructions were reviewed. She was asked to have one week bp check in office due to labile bps in her course. She denied other symptoms or complaints. Coding Level of Care Code None Diagnoses 38 weeks gestation of Z3A.38 Gestational hypertension O13.9 bradycardia Abnormal heart rate or rhythm affecting management of mother O36.8390 S/P primary low transverse Z98.891
== END 2019-12-25 11:20 | disposition home or self-care (01) | DRG 788 ==
LOC: OPB 20:12 → 4S1 20:13 → 4S2 12-22 23:25

== ENCOUNTER 2022-03-16 05:42 | Inpatient (IN) ==
--- NOTE | 2022-02-23 10:12 | History & Physical Report ---
Date of Service February 23, 2022 Assessment & Plan (1) Previous delivery affecting , antepartum: (2) Encounter for sterilization: Plan Will admit on day of admission for planned c/s and tubal ligation. Risks, alternatives and complications of procedure reviewed with patient and include but are not limited to bleeding, infection, anesthesia, injury to surrounding maternal or structures, failure of tubal procedure with resultant pregnanc y, ectopic which can be medical emergency, regret. Patient desires to proceed and consent signed. She is aware of all alternative control methods. Consent reviewed and signed. Labs morning of procedure. History of Present Illness Chief Complaint: planned c/s and tubal. Primary Care Provider: Malena Woodruff, DO 31yo at 36wks today for preop evaluation for planned c/s and tubal ligation when she is 39wks ega. Patient denies leaking, bleeding or ctx. +FM. Had prior c/s and desires repeat c/s and desires tubal. PNC c/b 1. GDM, aga on u/s, diet controlled. 2. Prior complicated by gest htn, on baby asa 3. prior c/s x 1, desires repeat 4. Desires sterilization. PNL rh pos, ri, gbs + OBH: c/s x 1 GYNH: nl paps, no stds Allergies Allergy/AdvReac Type Severity Reaction Status Date / Time No Known Allergies Allergy Verified 02/23/22 08:53 Home Medications Medication Instructions Recorded Confirmed Type prenat.vits,cyrus,tgq-[id number] 1 tab PO DAILY 05/19/19 02/23/22 History omega-3 fatty acids [Fish Oil] PO 08/09/21 02/23/22 History aspirin 81 mg tablet,delayed 81 mg PO DAILY 10/12/21 02/23/22 History release acetone (urine) test (Ketone Urine #50 ea 01/15/22 02/23/22 Rx Test strips) blood sugar diagnostic (OneTouch #150 ea 01/15/22 02/23/22 Rx Verio test strips) blood-glucose meter (OneTouch #1 ea 01/15/22 02/23/22 Rx Verio Reflect Meter) lancets 33 gauge (OneTouch Delica #150 ea 08/16/22 09/02/22 Rx Lancets) Patient History Medical History (Updated 02/23/22 @ 10:09 by Bria Mcintosh MD, FACOG) Gestational hypertension Hx of varicella Seasonal allergies Yeast infection Surgical History (Updated 08/09/21 @ 15:24 by Connie Bhagat) S/P primary low transverse Family History Mother Hypertension Father Hypertension Social History (Updated 08/09/21 @ 08:51 by Connie Bhagat) Smoking Status: Never smoker Hx Alcohol Use: No Hx Substance Use: No Preferred Language: Greek Communication Ability: Effective Gaming Cashier Required: No Beliefs That Will Affect Care: None marital status: marital status details: Navarro Loo (34) [phone] Current Living Situation: Spouse Current Living Situation Comment: lives with spouse, child, 2 dogs current occupational status: unemployed current occupation: [employer] Feels Safe at Home: Yes Assistive Devices: None Review of Systems as per Subjective / HPI Physical Exam Constitutional: WD/WN, vitals as above Respiratory: normal respiratory effort, lungs clear to auscultation Cardiovascular: Rate/Rhythm: regular rate and regular rhythm Gastrointestinal (Abdomen): soft gravid nt Musculoskeletal: no edema Neurologic: grossly normal Psychiatric: A+Ox3, euthymic affect Coding Level of Care Code None Diagnoses Previous delivery affecting , antepartum O34.219 Encounter for sterilization Z30.2
--- NOTE | 2022-03-07 11:00 | Anesthesiology Consultation ---
Date of Service March 07, 2022 Assessment & Plan (1) Encounter for pre-operative examination: COVID screening: Per assessment on 03/07: No known COVID-19 positive contacts or current COVID-19 related symptoms. Travel screen negative. Patient vaccinated. Chart Review Chart Review: file clerk data entry initiated History Surgery Operation Date: 03/16/22 07:30 Proposed Procedures p Section (Delivery of Baby through Abdominal Incision) with - Bria Mcintosh MD, FACOG s Bilateral Tubal Ligation - Bria Mcintosh MD, FACOG Height/Weight Height: 5 ft 4 in Weight: 96.162 kg Allergies Allergy/AdvReac Type Severity Reaction Status Date / Time No Known Allergies Allergy Verified 03/07/22 10:33 Medications Home Medications Medication Instructions Recorded Confirmed Last Taken prenat.vits,cyrus,[id number]-fucfm 1 tab PO HS 05/19/19 03/07/22 12/21/19 08:00 aspirin 81 mg tablet,delayed 81 mg PO QAM 10/12/21 03/07/22 Unknown release acetone (urine) test (Ketone Urine #50 ea 01/15/22 03/07/22 Unknown Test strips) blood sugar diagnostic (OneTouch #150 ea 01/15/22 03/07/22 Unknown Verio test strips) blood-glucose meter (OneTouch #1 ea 01/15/22 03/07/22 Unknown Verio Reflect Meter) lancets 33 gauge (OneTouch Delica #150 ea 02/06/22 03/07/22 Unknown Lancets) loratadine 10 mg tablet (Claritin) 10 mg PO QAM 03/07/22 03/07/22 Unknown omega 6-fve-dfm-fish oil 900 1 cap PO HS 03/07/22 03/07/22 Unknown mg-1,400 mg capsule,delayed release Past Medical History Medical History Gestational diabetes diet control, checks glucose 4x per day Gestational hypertension Hx of varicella Seasonal allergies Past Family History Family History Mother Hypertension Father Hypertension Past Surgical History Surgical History S/P primary low transverse Social History Smoking Status: Never smoker Do You Dip or Chew Tobacco: No Hx Alcohol Use: No Hx Substance Use: No substance use type: does not use
[2022-03-16] MEDS ORDERED: LACTATED RINGER'S 1,000 ML IV SCH ×2 (05:45→08:59)
[2022-03-16] MEDS ORDERED: ceFAZolin 2000MG 2,000 MG/15 ML SYR IV SCH (06:00)
[2022-03-16] MEDS ORDERED: CITRIC ACID/SODIUM CITRATE 15 ML UDC PO SCH (06:00)
[2022-03-16] MEDS ORDERED: SODIUM CHLORIDE 0.9% 250 ML IV PRN (06:06)
[2022-03-16] MEDS ORDERED: OXYTOCIN 10 UNITS/ML VIAL ONE (06:50)
[2022-03-16] MEDS ORDERED: MoRPHine SULFATE PF 1 MG/ML 10 ML AMP/VIAL ONE (06:50)
[2022-03-16] MEDS ORDERED: fentaNYL citrate 100 MCG/2 ML VIAL ONE (06:50)
[2022-03-16] MEDS ORDERED: PHENYLEPHRINE 100MCG/ML 5ML SYR ONE (06:50)
[2022-03-16] MEDS ORDERED: ONDANSETRON INJ 2 MG/ML 2 ML VIAL ONE (06:50)
[2022-03-16 07:15] LABS: Basophils # (auto) 0.02 K/uL (0-0.2); Basophils % (auto) 0.2 %; Eosinophils # (auto) 0.02 K/uL (0-0.50); Eosinophils % (auto) 0.2 %; Hematocrit (blood only) 36.8 % (34.1-44.9); Immature Granulocytes # (auto) 0.04 K/uL (0.00-0.02); Immature Granulocytes % (auto) 0.4 %; Lymphocytes # (auto) 2.12 K/uL (1.2-3.4); Lymphocytes % (auto) 23.2 %; Mean Corpuscular Hemoglobin 30.8 pg (25.0-34.0); Mean Corpuscular Hgb Conc 35.3 g/dL (32.0-36.0); Mean Corpuscular Volume 87.2 fL (80.0-100.0); Mean Platelet Volume 10.5 fL (9.4-12.3); Monocytes # (auto) 0.56 K/uL (0.24-0.82); Monocytes % (auto) 6.1 %; Neutrophils # (auto) 6.37 K/uL (1.4-6.5); Neutrophils % (auto) 69.9 %; Platelet Count 166 K/uL (130-400); RDW Standard Deviation 40.4 fL (36.4-46.3); Red Blood Count 4.22 M/uL (3.93-5.22); White Blood Count 9.13 K/ul (4.8-10.8)
--- NOTE | 2022-03-16 07:19 | History & Physical Bridge Note ---
Date of Service March 16, 2022 History & Physical Bridge Note I have examined the patient, reviewed the History & Physical and in the interval since the performance of the History & Physical I have noted the following changes of clinical significance: no changes noted
[2022-03-16] MEDS ORDERED: NALOXONE HCL 0.08 MG in SYRINGE 1.8 ML IV PRN (07:41)
[2022-03-16] MEDS ORDERED: MoRPHine SULFATE PF 1 MG/ML 10 ML AMP/VIAL INT SPINAL ONE (07:41)
[2022-03-16] MEDS ORDERED: ePHEDrine sulfate 50 MG/ML AMP IV PRN (07:41)
[2022-03-16] MEDS ORDERED: ONDANSETRON INJ 2 MG/ML 2 ML VIAL IV PRN (07:41)
[2022-03-16] MEDS ORDERED: MoRPHine SULFATE 2 MG/ML CARP IV PRN (07:41)
[2022-03-16] MEDS ORDERED: NALOXONE HCL 0.4 MG/1 ML VIAL/CARP IV PRN (07:41)
[2022-03-16] MEDS ORDERED: NALOXONE HCL 1 MG in SODIUM CHLORIDE 0.9% 1000ML 1,000 ML IV PRN (07:41)
[2022-03-16] MEDS ORDERED: diphenhydrAMINE 50 MG/ML VIAL IV PRN (07:41)
[2022-03-16] MEDS ORDERED: PROMETHAZINE HCL 6.25 MG in SODIUM CHLORIDE 0.9% 50 ML IV PRN (07:41)
[2022-03-16] MEDS ORDERED: NALBUPHINE HCL INJ 10 MG/ML AMP IV PRN (07:41)
[2022-03-16] MEDS ORDERED: LACTATED RINGER'S 500 ML IV PRN (07:41)
[2022-03-16] MEDS ORDERED: SODIUM CHLORIDE 0.9% 1000ML 1,000 ML IV SCH (07:45)
[2022-03-16] MEDS ORDERED: DC INTRASPINAL MORPHINE SCH (07:45)
[2022-03-16] MEDS ORDERED: NO NARCOTICS OR SEDATIVES SCH (07:45)
--- NOTE | 2022-03-16 08:39 | Post Operative Brief Note ---
PG Immediate Post Op with CF Date of Surgery March 16, 2022 Pre & Post Diagnosis Operation Date: 03/16/22 07:30 Pre-Op Diagnosis: Previous section,desires repeat Desires permanent sterilization Post-Op Diagnosis: same I identified the patient and participated in the time-out.: Yes Procedure Operation Date: 03/16/22 07:30 Actual Procedures p Primary Low Transverse Section - Bria Mcintosh MD, FACOG s Modified Galo Bilateral Tubal Ligation(Bilateral) - Bria Mcintosh MD, FACOG Surgeon Bria Mcintosh MD, FACOG Breaker Layer Daniel Estimated Blood Loss 600 Findings Consistent with Post-Op Diagnosis (viable male, apgars pending. normal uterus tubes and ovaries bilaterally, adhesions of bladder to left uterine wall.) Fluids 1500 Specimens Specimen Description: A: Cord blood B: Placenta C: portion of left fallopian tube D: portion of right fallopian tube Drains Valenzuela Catheter (valenzuela catheter inserted without difficulty after spinal. Valenzuela draining clear yellow urine and urine output to be monitored by anesthesia intraoperatively.) Anesthesia Type Spinal Complications none Disposition Accompanied Patient To Recovery: No Disposition: L&D
--- NOTE | 2022-03-16 08:54 | Operative Report ---
PG Post Operative Report Pre & Post Diagnosis Operation Date: 03/16/22 07:30 Pre-Op Diagnosis: 1. 39 wk iup 2. Prior section, Desires repeat section 3. Desires sterilization Post-Op Diagnosis: 1. 39 wk iup 2. Prior section, Desires repeat section 3. Desires sterilization I identified the patient and participated in the time-out.: Yes Procedure Operation Date: 03/16/22 07:30 Actual Procedures p Primary Low Transverse Section s Modified Galo Bilateral Tubal Ligation Surgeon Bria Mcintosh MD, FACOG Auto Appraiser Daniel Estimated Blood Loss 600 Findings Consistent with Post-Op Diagnosis (viable male, apgars pending. normal uterus tubes and ovaries bilaterally, adhesions of bladder to left uterine wall.) Fluids 1500 Specimens cord blood, portion of right fallopian tube, portion of left fallopian tube Drains valenzuela Anesthesia Type Spinal Complications none Disposition Accompanied Patient To Recovery: No Disposition: L&D Indications 32yo at 39+wks ega presents for planned repeat section and desires sterilization. Description of Procedure The patient was taken to the operating room and identified. After adequate anesthesia was obtained, she was placed in the supine position with a leftward tilt on the operating table and prepped and draped in the usual sterile fashion. A valenzuela catheter had already been placed. The knife was used to create a Pfannensteil skin incision that was carried down to the underlying layer of fascia. The fascia was nicked in the midline and this opening was extended laterally using Garcia scissors. Merary clamps were placed on the superior and inferior aspect of the fascial incision tenting it upward and the underlying rectus muscles were dissected off the overlying fascia both sharply and bluntly using Garcia scissors. The rectus muscles were bluntly in the midline. The peritoneal cavity was bluntly entered into. This opening was stretched. The bladder blade was placed. The vesicouterine peritoneum was elevated and opened up into and the bladder flap was created digitally and bladder blade was replaced. The knife was used to create a hysterotomy and this opening was stretched. The operators hand was placed through the hysterotomy and the bladder blade was removed. The head was elevated and flexed and with fundal pressure the head was delivered. The shoulders and body were rapidly delivered. The cord was clamped and cut and the 's mouth and nares were bulb suction. The infant was handed off to the awaiting pediatricians. Cord blood was obtained. The placenta was manually expressed. The uterus was exteriorized and cleared of all clots and debris. Dilute IV Pitocin was begun. The uterine tone was improving. The hysterotomy was closed in a running interlocking fashion using 0 Vicryl. Adhesion band on left of uterus released sharply with scissors. Attention was turned to the left fallopian tube that was followed out to its fimbriated end. The tube was elevated using a ekaterina clamp and a knuckle of tube was doubly ligated with 2-0 plain suture and transected. The specimen was sent. The stumps were cauterized with the bovie. The right fallopian tube was identified to its fimbriated end, elevated, double ligated and transected in a similar fashion. The specimen was sent and the stump of tube was cauterized with the bovie. The operative site to left of uterus was oozing and hemostasis achieved with interrupted sutures of 0 vicryl. The hysterotomy was hemostatic. The pelvis was suctioned of fluid. The uterus was returned to the abdomen. The gutters were cleared of all clots and debris. The hysterotomy and tubal sites were reinspected and noted to be hemostatic. The fascia was then closed in running fashion using 0 Vicryl. The subcutaneous fat was copiously irrigated and reapproximated using 2-0 chromic. The skin was closed in a subcuticular fashion using 4-0 monocryl. At this point the procedure was terminated. The patient was transferred to the recovery room in stable condition. All sponge, lap and needle counts are correct x2. I attest to the content of the Intraoperative Record and any orders documented therein. Any exceptions are noted below. OB Procedure Charges [id number] Add on Tubal for C/S
--- NOTE | 2022-03-16 08:57 | Anesthesiology Progress Note ---
Date of Service March 16, 2022 Anesthesia Post Procedure Vital Signs Vital Signs: Temp Pulse Resp BP Pulse Ox 03/16/22 05:56 36.9 C 18 03/16/22 08:54 75 98 03/16/22 08:49 72 99 03/16/22 08:44 70 148/70 H 98 03/16/22 07:01 36.7 C 96 H 18 137/87 03/16/22 06:04 105 H 128/75 03/16/22 05:53 108 H 148/86 H Transfer of Care Handoff Completed per policy Notes Mental Status: alert / awake / arousable and participated in evaluation Patient Amnestic to Procedure: No Nausea / Vomiting: adequately controlled Pain: adequately controlled Airway Patency, RR, SpO2: stable & adequate BP & HR: stable & adequate Hydration State: stable & adequate Neuraxial Anesthesia: was administered and sensory block is resolving Anesthetic Complications: no major complications apparent and Pt Satisfied with anesthetic care
[2022-03-16] MEDS ORDERED: DIPHTHERIA/TETANUS/PERTUSSIS 0.5 ML SYR/VIAL IM ONE (08:59)
[2022-03-16] MEDS ORDERED: SENNA 8.6 MG TAB PO PRN (08:59)
[2022-03-16] MEDS ORDERED: BENZOCAINE 20% AER SPR 82.5 GM CAN EXT PRN (08:59)
[2022-03-16] MEDS ORDERED: MAGNESIUM HYDROXIDE SUSP 30 ML UDC PO PRN (08:59)
[2022-03-16] MEDS ORDERED: HYDROCORTISONE ACETATE 25 MG SUPP PR PRN (08:59)
[2022-03-16] MEDS: OXYTOCIN 20 UNITS in LACTATED RINGER'S 1,000 ML IV SCH ×2 (09:48→18:24)
[2022-03-16] MEDS: KETOROLAC 30 MG/ML VIAL IV PRN ×2 (13:59→19:47)
[2022-03-16] MEDS: SIMETHICONE 80 MG CHEW PO SCH ×2 (13:59→19:47)
[2022-03-16] MEDS: DOCUSATE SODIUM 100 MG CAP PO SCH (20:37)
[2022-03-17] MEDS ORDERED: ONDANSETRON INJ 2 MG/ML 2 ML VIAL IV PRN (01:42)
[2022-03-17] MEDS ORDERED: diphenhydrAMINE 50 MG/ML VIAL IV PRN (01:42)
[2022-03-17] MEDS ORDERED: oxyCODONE/ACETAMINOPHEN 5mg/325mg TAB PO PRN (01:42)
[2022-03-17] MEDS ORDERED: PROMETHAZINE HCL 25 MG in SODIUM CHLORIDE 0.9% 50 ML IV PRN (01:42)
[2022-03-17] MEDS ORDERED: ZOLPIDEM TARTRATE 5 MG TAB PO PRN (01:42)
[2022-03-17] MEDS ORDERED: diphenhydrAMINE Capsule 25 MG CAP PO PRN (01:42)
[2022-03-17 06:44] LABS: Basophils # (auto) 0.03 K/uL (0-0.2); Basophils % (auto) 0.3 %; Eosinophils # (auto) 0.04 K/uL (0-0.50); Eosinophils % (auto) 0.4 %; Hematocrit (blood only) 37.4 % (34.1-44.9); Hemoglobin 13.2 g/dl (12.0-16.0); Immature Granulocytes # (auto) 0.03 K/uL (0.00-0.02); Immature Granulocytes % (auto) 0.3 %; Lymphocytes # (auto) 1.23 K/uL (1.2-3.4); Lymphocytes % (auto) 11.1 %; Mean Corpuscular Hemoglobin 30.8 pg (25.0-34.0); Mean Corpuscular Hgb Conc 35.3 g/dL (32.0-36.0); Mean Corpuscular Volume 87.2 fL (80.0-100.0); Monocytes # (auto) 0.55 K/uL (0.24-0.82); Neutrophils # (auto) 9.16 K/uL (1.4-6.5); Neutrophils % (auto) 82.9 %; Platelet Count 160 K/uL (130-400); Red Blood Count 4.29 M/uL (3.93-5.22); White Blood Count 11.04 K/ul (4.8-10.8)
--- NOTE | 2022-03-17 06:46 | Obstetrical Progress Note ---
Date of Service March 17, 2022 Assessment & Plan (1) delivery delivered: (2) History of gestational hypertension: Plan - Overall, feeling well and eating well today - Infant formula feeding going well without concern, no breast pain - Urinating and passing gas appropriately - Ambulating well around room - Pain controlled w/ Toradol - Routine PP care progressing well - Anticipate discharge tomorrow if continuing to progress Admission and Anticipated Discharge Date Admission Date: March 16, 2022 Supervising Physician Co-Signing Physician Notes Resident Physician Supervision Note: I was present with Dr. Wells during the history and exam. I discussed the case with the resident and agree with the findings and plan as documented in the note. Any exceptions or clarifications are listed here: [None] Documented By: Emmanuel Morton MD, FACOG Subjective Today 03/17: Patient is a 32 y/o [id number] who is POD #1 following delivery at 39w0d. She reports feeling overall well this morning. - Ambulation - around room without difficulty - Voiding/Das - independently w/o dysuria - Gas/Stool - passing gas, no bowel movement - Diet - regular diet, no nausea or emesis - Lochia - small increase this morning, still similar to period, no large clots - Infant Feeding Type - Formula feeding, no breast pain - Pain Level - 5/10, taking Toradol Review of Systems - Denies fever, chills, sweats - Denies shortness of breath, difficulty breathing, chest pain, palpitations, chest pressure. - Denies breast pain. - Denies dysuria. - Denies headache or changes in vision. Physical Exam Physical Exam: General: Alert, oriented. No acute distress. Cardiac: RRR, normal S1/S2, no murmurs/rubs/gallops. Respiratory: Non-labored, CTAB, no wheezes/rales/rhonchi. Symmetric chest rise. Abdomen: Soft, nontender, nondistended. Bowel sounds present. Uterus: Uterine fundus firm, palpable 2 cm below umbilicus. Incision clean and dry, no erythema, mild ecchymosis, no purulence. Lower Extremities: Trace lower extremity edema. No deep calf pain. Dinora's negative bilaterally. Results & Data ([facility]) Vital Signs (Past 12 Hours) Vital Signs Temp Pulse Resp BP Pulse Ox O2 Del Method 03/17/22 03:02 37 C 101 H 18 132/87 97 Room Air 03/16/22 19:56 36.7 C 90 18 124/78 03/17/22 00:00 16 96 03/17/22 01:00 18 97 03/16/22 23:00 16 96 03/16/22 22:00 36.9 C 93 H 18 122/81 95 Room Air 03/16/22 21:00 18 95 03/16/22 19:56 18 96 Resident Activity Tracking Resident Involvement: Resident Care Provided Care Provided: OB Delivery
[2022-03-17] MEDS: IBUPROFEN 600 MG TAB PO PRN ×3 (08:49→20:30)
[2022-03-17] MEDS: SIMETHICONE 80 MG CHEW PO SCH ×4 (09:09→20:05)
[2022-03-17] MEDS: DOCUSATE SODIUM 100 MG CAP PO SCH ×2 (09:09→20:05)
[2022-03-17] MEDS: PRENATAL VITAMIN 1 TAB PO SCH (09:09)
[2022-03-17] MEDS: FERROUS SULFATE 325 MG TAB PO SCH (09:09)
[2022-03-17] MEDS: LORATADINE 10 MG TAB PO SCH (11:15)
[2022-03-17] MEDS ORDERED: bisacodyL 5 MG TABEC PO SCH (20:00)
[2022-03-18] MEDS: IBUPROFEN 600 MG TAB PO PRN ×2 (01:34→07:31)
[2022-03-18] MEDS: SIMETHICONE 80 MG CHEW PO SCH (07:31)
[2022-03-18] MEDS: PRENATAL VITAMIN 1 TAB PO SCH (07:31)
[2022-03-18] MEDS: FERROUS SULFATE 325 MG TAB PO SCH (07:31)
[2022-03-18] MEDS: DOCUSATE SODIUM 100 MG CAP PO SCH (07:31)
[2022-03-18] MEDS: LORATADINE 10 MG TAB PO SCH (07:33)
[2022-03-18 07:49] LABS: Hematocrit (blood only) 37.5 % (34.1-44.9)
[2022-03-18] MEDS ORDERED: bisacodyL 10 MG SUPP PR PRN (08:42)
--- NOTE | 2022-03-18 10:07 | Obstetrical Progress Note ---
Date of Service March 18, 2022 Assessment & Plan (1) delivery delivered: Plan stable, ready for dc home, instructions reviewed. f/u 6wks pp check. hgb stable. Day #:: 2 Subjective Ambulation: ambulating normally Voiding: no voiding problems Diet Tolerance:: regular diet Lochia:: Small Feeding Type:: bottle feeding no pain issues. Constitutional: + as per Subjective / HPI Physical Exam Constitutional WD/WN, vitals as above Respiratory normal respiratory effort, lungs clear to auscultation Cardiovascular Rate/Rhythm: regular rate and regular rhythm Gastrointestinal (Abdomen) Inspection/Auscultation: abdomen normal to inspection and + abdominal surgical incision (c/d/i) Percussion/Palpation: abdomen soft Fundus firm 2cm down Musculoskeletal nt calves no edema Neurologic grossly normal Psychiatric A+Ox3, euthymic affect Results & Data ([facility]) Vital Signs (Past 12 Hours) Vital Signs Temp Pulse Resp BP Pulse Ox O2 Del Method 03/18/22 07:45 98.4 F 82 20 137/87 100 Room Air 03/17/22 22:57 98.2 F 84 18 126/74 99 Room Air
== END 2022-03-18 11:05 | disposition home or self-care (01) | DRG 785 ==
LOC: 4S1 05:42 → EDSTATUS 07:30 → 4E2 11:41
PROC: M.PPTLD (2022-03-16 07:30)